=== PATIENT | male | born 1990 | race Caucasian/White ===

== ENCOUNTER 2022-07-24 23:15 | Emergency (ER) | payer BC ==
[~2022-07-24] VITALS: Ht 180.3 cm; Wt 93.4 kg
[2022-07-24 23:16] VITALS: BP 133/89
[2022-07-24] MEDS ORDERED: KETOROLAC TROMETHAMINE INJ 60 MG/2 ML VIAL IM ONE ×2 (23:30→23:40)
== END 2022-07-24 23:44 | disposition home or self-care (01) ==
LOC: ER 23:15
DX: M54.2 Cervicalgia (principal); Z98.890 Other specified postprocedural states
CPT/HCPCS: 99283; 96372; J1885